=== PATIENT | male | born 2000 | race American Indian/Alaskan Native ===

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

== ENCOUNTER 2019-10-09 17:22 | Emergency (ER) | payer OTHER ==
[2019-10-09 17:38] VITALS: BP 170/61
== END 2019-10-09 18:25 | disposition left against medical advice (07) ==
LOC: ED 17:22
DX: H91.92 Unspecified hearing loss, left ear (principal); Z53.21 Procedure and treatment not carried out due to patient leaving prior to being seen by health care provider

== ENCOUNTER 2020-01-21 12:15 | Emergency (ER) | payer SELFPAY ==
[2020-01-21 13:11] VITALS: BP 135/60
--- NOTE | 2020-01-21 13:15 | Emergency Department Report ---
Chief Complaint: Urogenital-Male Stated Complaint: STD Time Seen by Provider: 01/21/20 13:12 - HPI History of Present Illness: 19-year-old -Citizen Of [place] male patient presents with complaints of dysuria and penile discharge x2 days. He reports he wants to get checked for gonorrhea. He admits to recent sexual intercourse without condom use. He denies any penile/testicular swelling/sores, abdominal pain, fever/chills/sweats, decreased urination, or swollen/painful/warm joints. Patient also denies any other past medical history - Exam Vital Signs: Vital Signs 01/21/20 13:10 Temperature 98 F Pulse Rate 61 Respiratory 16 Rate Blood Pressure 135/60 [Right] O2 Sat by Pulse 98 Oximetry MSE screening note: Focused history and physical exam performed. Due to findings the following was ordered: ED Medical Decision Making - Medical Decision Making 19-year-old -Citizen Of [place] male patient presents with complaints of dysuria and penile discharge x2 days. He reports he wants to get checked for gonorrhea. He admits to recent sexual intercourse without condom use. He denies any penile/testicular swelling/sores, abdominal pain, fever/chills/sweats, decreased urination, or swollen/painful/warm joints. Patient also denies any other past medical history Patient provided with outpatient resources for STD testing including the health department, urgent cares, [facility], and Dr. Pollard. His vitals are normal, he is well-appearing, he is stable for discharge home. Strict return precautions were discussed in detail with patient who verbalized understanding. Patient informed to refrain from any sexual activity until he is tested and treated properly and further instructions are given. ED Disposition for MSE Clinical Impression: Penile discharge Disposition: Z-07 MED SCREENING EXAM-LEFT Is pt being admited?: No Condition: Stable Instructions: Urethritis, Adult, Safe Sex Referrals: PRIMARY CARE, [Primary Care Provider] - 3-5 Days ED Physical Exam - General Limitations: No Limitations General appearance: alert, in no apparent distress - Head Head exam: Present: atraumatic, normocephalic - Eye Eye exam: Present: normal appearance. Absent: scleral icterus - Neck Neck exam: Present: normal inspection - Respiratory Respiratory exam: Present: normal lung sounds bilaterally. Absent: respiratory distress - Cardiovascular Cardiovascular Exam: Present: regular rate, normal rhythm. Absent: systolic murmur, diastolic murmur, rubs, gallop - GI/Abdominal GI/Abdominal exam: Present: soft. Absent: distended, tenderness, guarding, rebound, rigid - Back Exam Back exam: Present: normal inspection. Absent: CVA tenderness (R), CVA tenderness (L) - Neurological Exam Neurological exam: Present: alert, oriented X3 - Psychiatric Psychiatric exam: Present: normal affect, normal mood - Skin Skin exam: Present: warm, dry, intact, normal color. Absent: rash, cyanosis, diaphoretic, petechiae, pallor, ecchymosis ED Review of Systems ROS: Stated complaint: STD Other details as noted in HPI Constitutional: denies: chills, diaphoresis, fever, malaise, weakness ENT: denies: throat pain Respiratory: denies: cough, shortness of breath Cardiovascular: denies: chest pain Endocrine: denies: excessive sweating Gastrointestinal: denies: abdominal pain, nausea, vomiting, diarrhea Genitourinary: dysuria, discharge. denies: frequency, hematuria, testicular pain, testicular mass Skin: denies: rash, lesions, change in color Hematological/Lymphatic: denies: swollen glands
== END 2020-01-21 13:30 | disposition left against medical advice (07) ==
LOC: ED 12:15
DX: A64 Unspecified sexually transmitted disease (principal); Z53.21 Procedure and treatment not carried out due to patient leaving prior to being seen by health care provider